=== PATIENT | female | born 1945 | race Caucasian/White ===

== ENCOUNTER → 2016-09-12 | Outpatient (CLI) | payer OTHER ==
[~2016-09-12] MED LIST: ASPI-770 PO; FLUT1DIS3 INH; LISI-170 PO; LISI2.5T PO; OMNIPAQUE 350 MG/ML, 75ML BOTTLE ONE; PRAV40TA2 PO
== END | disposition home or self-care (01) ==
LOC: CFH 12:35
PROVIDERS: ATTEND Orthopaedic Surgery
DX: D48.0 Neoplasm of uncertain behavior of bone and articular cartilage (principal); Z85.831 Personal history of malignant neoplasm of soft tissue; Z96.659 Presence of unspecified artificial knee joint
CPT/HCPCS: 71260; 73552; 82565; Q9967

== ENCOUNTER 2017-04-23 08:43 | Emergency (ER) | payer OTHER ==
[~2017-04-23] VITALS: Ht 160 cm; Wt 48.1 kg
[~2017-04-23 08:43] MED LIST changes: -OMNIPAQUE 350 MG/ML, 75ML BOTTLE ONE
[2017-04-23 09:02] VITALS: BP 111/68
[2017-04-23] MEDS ORDERED: SODIUM CHLORIDE FLUSH 10ML SYR IVF ONE (10:00)
[2017-04-23 10:09] LABS: ASPARTATE AMINO TRANSFERASE 33 U/L (15-37); BLOOD UREA NITROGEN 20 mg/dL (7-18)
[2017-04-23 10:17] LABS: HEMOGLOBIN 15.1 g/dL (11.7-16.4); WHITE BLOOD COUNT 5.9 x10^3/uL (3.4-10)
[2017-04-23] MEDS ORDERED: OMNIPAQUE 350 MG/ML, 100ML BOTTLE ONE (11:06)
== END 2017-04-23 12:41 | disposition home or self-care (01) ==
LOC: ED 12:13
DX: N30.00 Acute cystitis without hematuria (principal); G89.29 Other chronic pain; R10.84 Generalized abdominal pain; E78.5 Hyperlipidemia, unspecified; I10 Essential (primary) hypertension; Z87.891 Personal history of nicotine dependence; Z90.710 Acquired absence of both cervix and uterus
CPT/HCPCS: 36415; 74022; 74177; 80053; 81001; 83605; 83690; 85025; 87086; 93005; 99285; Q9967